=== PATIENT | male | born 1960 | race Hispanic/Latino ===

== ENCOUNTER 2017-08-04 18:03 | Emergency (ER) | payer BC, OTHER ==
[2017-08-04 19:35] LABS: #Basophils 0.1 thou/uL (0.0-0.2); #Eosinphils 0.1 thou/uL (0.0-0.7); #Lymphocytes 2.5 thou/uL (1.20-3.40); #Monocytes 0.9 thou/uL (0.11-0.59); #Neutrophils 10.7 thou/uL (1.40-6.50); %Basophils 0.5 % (0.0-1.0); %Eosinophils 0.4 % (0.0-10.0); %Lymphocytes 17.7 % (21.0-51.0); %Monocytes 6.1 % (0.0-10.0); %Neutrophils 75.3 % (42.0-75.0); Mean Corpuscular HGB CONC 31.9 g/dL (32.0-36.0); Mean Corpuscular Hemoglobin 29.8 pg (27.0-31.0); Mean Corpuscular Volume 93.3 fl (80.0-94.0); Platelet Count 265 thou/uL (130-400); RBC Distribution Width 12.2 % (11.5-14.5); Red Blood Cell (RBC) Count 5.02 mill/uL (4.70-6.10); White Blood Cell (WBC) Count 14.2 thou/uL (4.8-10.8)
[2017-08-04 19:57] LABS: ALT (SGPT) 17 U/L (8-55); AST (SGOT) 21 U/L (5-34); Albumin 4.4 g/dL (3.5-5.0); Alkaline Phosphatase 87 U/L (40-150); Anion Gap 16 mmol/L (10-20); BUN (Urea Nitrogen) 16 mg/dL (8.4-25.7); Bilirubin, Total 0.7 mg/dL (0.2-1.2); Calc. Creatinine Clearance 0 mL/min (70-130); Calcium 9.7 mg/dL (7.8-10.44); Carbon Dioxide 22 mmol/L (22-29); Chloride 105 mmol/L (98-107); Estimated GFR-MDRD 74; Globulin 3.4 g/dL (2.4-3.5); Glucose 98 mg/dL (70-105); Protein, Total 7.8 g/dL (6.0-8.3); Sodium 139 mmol/L (136-145)
[2017-08-04 23:51] LABS: Bilirubin Negative (Negative); Blood, Urine Large (Negative); Clarity CLEAR (Clear); Glucose, Urine (Dipstick) Negative (Negative); Leukocyte Small (Negative); Nitrite Negative (Negative); Protein, Urine (Dipstick) Negative (Neg-Trace); Specific Gravity, Urine 1.022 (1.002-1.036); pH, Urine 5.5 (5.0-9.0)
[2017-08-04 23:53] LABS: Bacteria/HPF None Seen HPF (None Seen); Hyaline Casts/LPF 0-3 HYALINE CAST LPF (0-3 Hyaline); Pathc Cast-AUWi Flag 0.58 (0-2.49); Squamous Epithelial None Seen HPF (0-3)
[2017-08-05] MEDS ORDERED: Ketorolac Tromethamine 30 MG/ML VIAL ONE (00:05)
[2017-08-05] MEDS ORDERED: Azithromycin 250 MG TAB ONE (01:45)
[2017-08-05] MEDS ORDERED: cefTRIAXone\\ROCEPHIN 250 MG VIAL ONE (01:45)
[2017-08-05] MEDS ORDERED: Lidocaine 1% PF 5 ML VIAL ONE (01:45)
--- NOTE | 2017-08-05 14:04 | ULT ---
PRELIMINARY REPORT/[facility]/EMERGENTY AFTER-HOURS PROCEDURE US Scrotum CLINICAL HISTORY: 57 years old, male; Pain; Scrotum pain; Patient HX: Testicular pain x 3 days, pain worse on left side TECHNIQUE: Real-time ultrasound of the scrotum with color Doppler and image documentation. COMPARISON: No relevant prior studies available. FINDINGS: Right testicle: Minimal testicular microlithiasis. No mass. No torsion. Left testicle: Minimal testicular microlithiasis. No mass. No torsion. Heterogeneous mixed echogenici ty mass along the inferior aspect of the LEFT testicle with increased vascular flow in Epididymides: Bilateral epididymal head cysts Scrotum: Unremarkable. IMPRESSION: Heterogeneous soft tissue mass along the inferior aspect of the LEFT testicle with increased vascular flow possibly representing epididymitis of the epididymal tail. No evidence of torsion. Bilateral testicular microlithiasis Thank you for allowing us to participate in the care of your patient. Dictated and Authenticated by: Олег Lyons MD 08/05/2017 1:06 AM Central Time ([place] & [place]) TESTICULAR ULTRASOUND: HISTORY: Testicular pain x3 days. FINDINGS: Real-time imaging of the right and left testis was performed. The right testicle measures 4.5 and the left testicle 3.7 cm in size. The right epididymal cyst tariq ures 6.9 mm. Inferior to the left testicle is a somewhat heterogeneous vascular mass, which would be in the region of the tail of the epididymis. It is enlarged and measures as much as 2.7 cm in maxim um diameter x 1.1 cm in thickness. There is increased flow associated with this. Small calcifications are seen in both testes, without any discrete mass. IMPRESSION: 1. Testicular microlithiasis. 2. No evidence of torsion of either testes. Normal Doppler flow. 3. Heterogeneous mass along the inferior pole of the left testis, which appears to be an enlarged he ad of the epididymis, suggesting epididymitis. This report is in agreement with the temporary report issued by [facility]. POS: [email or web address]
[2017-08-06 21:54] LABS: Chlamydia by PCR Not Detected (NotDetected); GC by PCR Not Detected (NotDetected)
== END 2017-08-05 02:25 | disposition home or self-care (01) ==
LOC: ERS 18:03
DX: N45.1 Epididymitis (principal); N50.9 Disorder of male genital organs, unspecified; I25.10 Atherosclerotic heart disease of native coronary artery without angina pectoris; I10 Essential (primary) hypertension
CPT/HCPCS: 36415; 76870; 80053; 81003; 81015; 85025; 87086; 87491; 87591; 93976; 96372; J0696; J1885; J2001